=== PATIENT | male | born 2000 | race Caucasian/White ===

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

== ENCOUNTER 2023-04-13 02:47 | Emergency (ER) | payer BC ==
[2023-04-13] MEDS ORDERED: Tetracaine HCl/PF 0.5% 4 ML Bottle EYERT ONE (03:10)
[2023-04-13] MEDS ORDERED: Tetracaine HCl/PF 0.5% 4 ML Bottle ONE (03:11)
== END 2023-04-13 03:31 | disposition home or self-care (01) ==
LOC: KA.ED 02:47
DX: S05.02XA Injury of conjunctiva and corneal abrasion without foreign body, left eye, initial encounter (principal)
CPT/HCPCS: 99283; J3490